=== PATIENT | male | born 1950 | race Caucasian/White ===

== ENCOUNTER 2018-01-17 17:55 | Inpatient (IN) | payer MEDICARE, OTHER ==
[~2018-01-17] VITALS: Ht 182.9 cm; Wt 63.3 kg
[2018-01-17 20:00] VITALS: BP 112/78
[2018-01-17] MEDS ORDERED: POLYETHYLENE GLYCOL 17 GM PACKET PO PRN (20:00)
[2018-01-17] MEDS ORDERED: HYDROcodone/APAP 5/325 TABLET PO PRN (20:00)
[2018-01-17] MEDS ORDERED: ONDANSETRON 2MG/ML, 2ML IVPush PRN (20:00)
[2018-01-17] MEDS ORDERED: DOCUSATE 100 MG CAPSULE PO PRN (20:00)
[2018-01-17] MEDS ORDERED: morphine SULFATE 10 MG/ML, 1ML IVPush PRN (20:00)
[2018-01-17] MEDS ORDERED: ASPI-496 PO (20:43)
[2018-01-17] MEDS ORDERED: DILT120C75 PO (20:44)
[2018-01-17] MEDS ORDERED: LOSA100T6 PO (20:46)
[2018-01-17] MEDS: SODIUM CHLORIDE 0.9% 1,000 ML IV SCH (21:39)
[2018-01-17] MEDS: SODIUM CHLORIDE FLUSH 10ML SYR IVF SCH (21:39)
[2018-01-17] MEDS: ENOXAPARIN 40 MG/0.4 ML SQ SCH (21:45)
[2018-01-17] MEDS: PYRIDOSTIGMINE 60 MG TABLET PO SCH (21:45)
[2018-01-18 04:00] VITALS: BP 94/54
[2018-01-18 04:36] LABS: BASOPHILS # (AUTO) 0.02 x10^3/uL (0-0.1); BASOPHILS % (AUTO) 0 % (0-1); EOSINOPHILS # (AUTO) 0.04 x10^3/uL (0-0.4); EOSINOPHILS % (AUTO) 1 % (1-7); LYMPHOCYTES # (AUTO) 1.01 x10^3/uL (1-3.4); LYMPHOCYTES % (AUTO) 24 % (22-44); MD NO; MEAN CORPUSCULAR HEMOGLOBIN 31.8 pg (27.5-34.5); MEAN CORPUSCULAR HGB CONC 32.6 g/dL (33.2-36.2); MEAN CORPUSCULAR VOLUME 97.7 fL (81-97); MEAN PLATELET VOLUME 7.6 fL (7.4-10.4); MONOCYTES # (AUTO) 0.45 x10^3/uL (0.2-0.8); MONOCYTES % (AUTO) 10 % (2-9); NEUTROPHILS # (AUTO) 2.78 x10^3/uL (1.8-6.8); NEUTROPHILS % (AUTO) 65 % (42-75); PLATELET COUNT 265 x10^3/uL (130-400); RED BLOOD COUNT 4.18 x10^6/uL (4.38-5.82)
[2018-01-18 04:41] LABS: ALBUMIN 3.1 g/dL (3.4-5.0); CALCIUM 8.8 mg/dL (8.5-10.1)
[2018-01-18 04:53] LABS: ALANINE AMINOTRANSFERASE 120 U/L (12-78); ALKALINE PHOSPHATASE 166 U/L (45-117); BILIRUBIN,TOTAL 0.5 mg/dL (0.2-1.0); TOTAL PROTEIN 5.9 g/dL (6.4-8.2)
[2018-01-18 05:11] LABS: ANION GAP 2 mmol/L (5-15); CHLORIDE 95 mmol/L (98-107)
[2018-01-18] MEDS: SODIUM CHLORIDE 0.9% 1,000 ML IV SCH ×2 (05:21→17:02)
[2018-01-18] MEDS ORDERED: SODIUM CHLORIDE 0.9%, 250ML IVBOLUS ONE (05:30)
[2018-01-18] MEDS: PYRIDOSTIGMINE 60 MG TABLET PO SCH (08:00)
[2018-01-18] MEDS: ENOXAPARIN 40 MG/0.4 ML SQ SCH (08:02)
[2018-01-18] MEDS: SODIUM CHLORIDE FLUSH 10ML SYR IVF SCH ×2 (09:00→19:57)
[2018-01-18] MEDS: SENNA/DOCUSATE TABLET PO SCH (09:00)
[2018-01-18] MEDS ORDERED: ARTIFICIAL TEARS 15 DROP/ML BOTTLE OP PRN (09:30)
[2018-01-19 04:00] VITALS: BP 148/100
[2018-01-19 04:31] LABS: BASOPHILS # (AUTO) 0.04 x10^3/uL (0-0.1); BASOPHILS % (AUTO) 1 % (0-1); EOSINOPHILS # (AUTO) 0.08 x10^3/uL (0-0.4); EOSINOPHILS % (AUTO) 2 % (1-7); LYMPHOCYTES # (AUTO) 1.15 x10^3/uL (1-3.4); LYMPHOCYTES % (AUTO) 34 % (22-44); MD NO; MEAN CORPUSCULAR HEMOGLOBIN 31.7 pg (27.5-34.5); MEAN CORPUSCULAR HGB CONC 32.5 g/dL (33.2-36.2); MEAN CORPUSCULAR VOLUME 97.4 fL (81-97); MEAN PLATELET VOLUME 7.8 fL (7.4-10.4); MONOCYTES # (AUTO) 0.39 x10^3/uL (0.2-0.8); MONOCYTES % (AUTO) 12 % (2-9); NEUTROPHILS # (AUTO) 1.71 x10^3/uL (1.8-6.8); NEUTROPHILS % (AUTO) 51 % (42-75); PLATELET COUNT 232 x10^3/uL (130-400); RED BLOOD COUNT 3.86 x10^6/uL (4.38-5.82)
[2018-01-19 04:39] LABS: ALBUMIN 2.9 g/dL (3.4-5.0); ANION GAP 0 mmol/L (5-15); CALCIUM 8.3 mg/dL (8.5-10.1); CHLORIDE 102 mmol/L (98-107)
[2018-01-19 05:07] LABS: ALANINE AMINOTRANSFERASE 111 U/L (12-78); ALKALINE PHOSPHATASE 149 U/L (45-117); BILIRUBIN,TOTAL 0.6 mg/dL (0.2-1.0); CREATININE 0.62 mg/dL (0.7-1.3); TOTAL PROTEIN 5.4 g/dL (6.4-8.2)
[2018-01-19] MEDS: SODIUM CHLORIDE 0.9% 1,000 ML IV SCH ×2 (05:15→18:22)
[2018-01-19] MEDS: SENNA/DOCUSATE TABLET PO SCH (08:29)
[2018-01-19] MEDS ORDERED: [UNRECOGNIZED DRUG - REMARK] XX PRN (14:00)
[2018-01-19] MEDS: SODIUM CHLORIDE FLUSH 10ML SYR IVF SCH ×2 (18:23→20:43)
[2018-01-19] MEDS: ENOXAPARIN 40 MG/0.4 ML SQ SCH (20:37)
[2018-01-19] MEDS: RILUZOLE 50 MG HOMEMEDPO SCH (20:43)
[2018-01-20] MEDS: SODIUM CHLORIDE 0.9% 1,000 ML IV SCH ×2 (03:48→15:24)
[2018-01-20 05:13] VITALS: BP 113/71
[2018-01-20 05:32] LABS: CHLORIDE 103 mmol/L (98-107)
[2018-01-20 05:37] LABS: BASOPHILS # (AUTO) 0.03 x10^3/uL (0-0.1); BASOPHILS % (AUTO) 1 % (0-1); EOSINOPHILS % (AUTO) 3 % (1-7); LYMPHOCYTES # (AUTO) 1.19 x10^3/uL (1-3.4); LYMPHOCYTES % (AUTO) 34 % (22-44); MD NO; MEAN CORPUSCULAR HGB CONC 32.9 g/dL (33.2-36.2); MEAN CORPUSCULAR VOLUME 97.3 fL (81-97); MEAN PLATELET VOLUME 8.3 fL (7.4-10.4); MONOCYTES # (AUTO) 0.34 x10^3/uL (0.2-0.8); MONOCYTES % (AUTO) 10 % (2-9); NEUTROPHILS # (AUTO) 1.86 x10^3/uL (1.8-6.8); NEUTROPHILS % (AUTO) 53 % (42-75); PLATELET COUNT 232 x10^3/uL (130-400); RED BLOOD COUNT 3.99 x10^6/uL (4.38-5.82); RED CELL DISTRIBUTION WIDTH 14.1 % (9.4-14.8)
[2018-01-20 05:37] LABS: ALANINE AMINOTRANSFERASE 96 U/L (12-78); ALBUMIN 3.1 g/dL (3.4-5.0); ALKALINE PHOSPHATASE 141 U/L (45-117); ANION GAP 4 mmol/L (5-15); BILIRUBIN,TOTAL 0.6 mg/dL (0.2-1.0); CALCIUM 8.8 mg/dL (8.5-10.1); CREATININE 0.64 mg/dL (0.7-1.3); TOTAL PROTEIN 5.7 g/dL (6.4-8.2)
[2018-01-20] MEDS ORDERED: CEFAZOLIN PMX 1GM/50ML 50 ML IV ONE (06:30)
[2018-01-20] MEDS: SENNA/DOCUSATE TABLET PO SCH (09:00)
[2018-01-20] MEDS ORDERED: FENTANYL PF 100 MCG/2ML ONE (10:44)
[2018-01-20] MEDS ORDERED: KETOROLAC 30 MG/1 ML ONE (10:45)
[2018-01-20] MEDS ORDERED: ACETAMINOPHEN 650 MG/20.3 ML UDC ONE (10:45)
[2018-01-20] MEDS ORDERED: KETOROLAC 30 MG/1 ML IV PRN (11:00)
[2018-01-20] MEDS ORDERED: ACETAMINOPHEN 325 MG TABLET PO PRN (11:00)
[2018-01-20] MEDS ORDERED: FENTANYL PF 100 MCG/2ML IV PRN (11:00)
[2018-01-20] MEDS: RILUZOLE 50 MG HOMEMEDPO SCH ×2 (11:20→20:42)
[2018-01-20] MEDS: SODIUM CHLORIDE FLUSH 10ML SYR IVF SCH ×2 (11:20→20:39)
[2018-01-20] MEDS: ACETAMINOPHEN 325 MG TABLET PO PRN (17:28)
[2018-01-20] MEDS: ENOXAPARIN 40 MG/0.4 ML SQ SCH (20:42)
[2018-01-21] MEDS: SODIUM CHLORIDE 0.9% 1,000 ML IV SCH (00:49)
[2018-01-21] MEDS: ACETAMINOPHEN 325 MG TABLET PO PRN ×3 (01:01→19:13)
[2018-01-21 04:00] VITALS: BP 113/64
[2018-01-21] MEDS: SENNA/DOCUSATE TABLET PO SCH (08:38)
[2018-01-21] MEDS: SODIUM CHLORIDE FLUSH 10ML SYR IVF SCH ×2 (08:40→20:35)
[2018-01-21] MEDS: RILUZOLE 50 MG HOMEMEDPO SCH ×2 (08:40→20:34)
[2018-01-21] MEDS: ENOXAPARIN 40 MG/0.4 ML SQ SCH (20:34)
[2018-01-22] MEDS: ACETAMINOPHEN 325 MG TABLET PO PRN ×2 (00:03→13:47)
[2018-01-22 04:00] VITALS: BP 128/72
[2018-01-22 04:30] LABS: ALANINE AMINOTRANSFERASE 112 U/L (12-78); ALBUMIN 2.8 g/dL (3.4-5.0); ANION GAP 3 mmol/L (5-15); CALCIUM 8.1 mg/dL (8.5-10.1); CHLORIDE 102 mmol/L (98-107); CREATININE 0.57 mg/dL (0.7-1.3)
[2018-01-22 04:33] LABS: ALKALINE PHOSPHATASE 165 U/L (45-117); BILIRUBIN,TOTAL 0.3 mg/dL (0.2-1.0); TOTAL PROTEIN 5.3 g/dL (6.4-8.2)
[2018-01-22] MEDS: SODIUM CHLORIDE FLUSH 10ML SYR IVF SCH (07:53)
[2018-01-22] MEDS: RILUZOLE 50 MG HOMEMEDPO SCH (07:53)
[2018-01-22] MEDS: SENNA/DOCUSATE TABLET PO SCH (07:53)
[2018-01-22] MEDS ORDERED: RILU50TA8 PO (14:46)
== END 2018-01-22 15:42 | disposition home health service (06) | DRG 56 ==
LOC: CCU 19:13
PROVIDERS: ADMIT Hospitalist; ATTEND Family Medicine
PROC: 5A09357 Assistance with Respiratory Ventilation, Less than 24 Consecutive Hours, Continuous Positive Airway Pressure (ICD-10-PCS; 2018-01-17)
PROC: 4A133B3 Monitoring of Arterial Pressure, Pulmonary, Percutaneous Approach (ICD-10-PCS; 2018-01-18)
PROC: 5A09357 Assistance with Respiratory Ventilation, Less than 24 Consecutive Hours, Continuous Positive Airway Pressure (ICD-10-PCS; 2018-01-18)
PROC: 05HN33Z Insertion of Infusion Device into Left Internal Jugular Vein, Percutaneous Approach (ICD-10-PCS; 2018-01-18)
PROC: B544ZZA Ultrasonography of Left Jugular Veins, Guidance (ICD-10-PCS; 2018-01-18)
PROC: 5A09357 Assistance with Respiratory Ventilation, Less than 24 Consecutive Hours, Continuous Positive Airway Pressure (ICD-10-PCS; 2018-01-19)
PROC: 5A09357 Assistance with Respiratory Ventilation, Less than 24 Consecutive Hours, Continuous Positive Airway Pressure (ICD-10-PCS; 2018-01-20)
PROC: 0DH63UZ Insertion of Feeding Device into Stomach, Percutaneous Approach (ICD-10-PCS; principal; 2018-01-20 10:00)
PROC: 5A09357 Assistance with Respiratory Ventilation, Less than 24 Consecutive Hours, Continuous Positive Airway Pressure (ICD-10-PCS; 2018-01-21)
PROC: 5A09357 Assistance with Respiratory Ventilation, Less than 24 Consecutive Hours, Continuous Positive Airway Pressure (ICD-10-PCS; 2018-01-22)
DX: G12.21 Amyotrophic lateral sclerosis (principal); J96.02 Acute respiratory failure with hypercapnia; E43 Unspecified severe protein-calorie malnutrition; E87.2 Acidosis; I95.9 Hypotension, unspecified; R13.10 Dysphagia, unspecified; Z68.1 Body mass index [BMI] 19.9 or less, adult; E78.5 Hyperlipidemia, unspecified; G47.33 Obstructive sleep apnea (adult) (pediatric); G89.29 Other chronic pain; M54.9 Dorsalgia, unspecified; M19.90 Unspecified osteoarthritis, unspecified site; I10 Essential (primary) hypertension; Z80.9 Family history of malignant neoplasm, unspecified; Z79.82 Long term (current) use of aspirin; Z91.018 Allergy to other foods
CPT/HCPCS: 36415; 36600; 80053; 82607; 82803; 83735; 84100; 84443; 85025; 87081; 94150; 94660; B4087; J0690; J1650; J1885; J3010; 92523-GN; J7030

== ENCOUNTER 2018-05-16 10:54 | Inpatient (IN) | payer MEDICARE, OTHER ==
[~2018-05-16] VITALS: Ht 182.9 cm; Wt 74.2 kg
[~2018-05-16 10:54] MED LIST: ASPI-496 PO; DILT120C75 PO; LOSA100T6 PO; RILU50TA8 PO
[2018-05-16 11:29] LABS: BASOPHILS # (AUTO) 0.02 x10^3/uL (0-0.1); BASOPHILS % (AUTO) 1 % (0-1); EOSINOPHILS # (AUTO) 0.06 x10^3/uL (0-0.4); EOSINOPHILS % (AUTO) 2 % (1-7); LYMPHOCYTES # (AUTO) 0.86 x10^3/uL (1-3.4); LYMPHOCYTES % (AUTO) 22 % (22-44); MD NO; MEAN CORPUSCULAR HEMOGLOBIN 31.2 pg (27.5-34.5); MEAN CORPUSCULAR HGB CONC 33.5 g/dL (33.2-36.2); MEAN CORPUSCULAR VOLUME 93.2 fL (81-97); MEAN PLATELET VOLUME 7.8 fL (7.4-10.4); MONOCYTES # (AUTO) 0.35 x10^3/uL (0.2-0.8); MONOCYTES % (AUTO) 9 % (2-9); NEUTROPHILS # (AUTO) 2.66 x10^3/uL (1.8-6.8); NEUTROPHILS % (AUTO) 67 % (42-75); PLATELET COUNT 206 x10^3/uL (130-400); RED BLOOD COUNT 4.33 x10^6/uL (4.38-5.82); RED CELL DISTRIBUTION WIDTH 13.1 % (9.4-14.8)
[2018-05-16] MEDS ORDERED: SODIUM CHLORIDE FLUSH 10ML SYR IVF ONE (11:30)
[2018-05-16] MEDS ORDERED: PLEASE ENTER HEIGHT AND WEIGHT MC SCH (11:30)
[2018-05-16 11:40] LABS: ALBUMIN 4.2 g/dL (3.4-5.0); ANION GAP 4 mmol/L (5-15); CALCIUM 9.8 mg/dL (8.5-10.1); CHLORIDE 101 mmol/L (98-107); CREATININE 1.17 mg/dL (0.7-1.3)
[2018-05-16 11:44] LABS: TROPONIN I < 0.015 ng/mL (0.000-0.045)
[2018-05-16 12:50] LABS: O2 FLOW 3 L/min
[2018-05-16] MEDS ORDERED: MORPHINE SULFATE 4 MG/ML, 1ML IVPush STA (15:05)
[2018-05-16] MEDS ORDERED: MORPHINE SULFATE 4 MG/ML, 1ML ONE (15:07)
[2018-05-16] MEDS ORDERED: ACETAMINOPHEN 325 MG TABLET PO PRN (15:30)
[2018-05-16] MEDS ORDERED: ONDANSETRON 2MG/ML, 2ML IVPush PRN (15:30)
[2018-05-16] MEDS: ENOXAPARIN 40 MG/0.4 ML SQ SCH (15:30)
[2018-05-16] MEDS ORDERED: TRAZODONE 50MG TABLET PO PRN (15:30)
[2018-05-16] MEDS ORDERED: ENOXAPARIN 40 MG/0.4 ML ONE (17:01)
[2018-05-16 17:42] LABS: FREE T4 (FREE THYROXINE) 1.19 ng/dL (0.76-1.46); THYROID STIMULATING HORMONE 2.21 mIU/L (0.358-3.740)
[2018-05-16] MEDS ORDERED: OLME20TA27 PO (19:29)
[2018-05-16] MEDS ORDERED: DILT240C80 PO (19:29)
[2018-05-16 19:32] VITALS: BP 132/75
[2018-05-16] MEDS: KETOROLAC 30 MG/1 ML IVPush PRN (19:48)
[2018-05-16 20:36] VITALS: BP 116/66
[2018-05-16] MEDS: RILUZOLE 50 MG PO SCH (20:58)
[2018-05-17] MEDS: KETOROLAC 30 MG/1 ML IVPush PRN ×2 (05:41→18:29)
[2018-05-17 07:18] VITALS: BP 101/64
[2018-05-17] MEDS: SODIUM CHLORIDE 0.9% 1,000 ML IV SCH ×2 (11:49→19:50)
[2018-05-17] MEDS: RILUZOLE 50 MG PO SCH ×2 (11:51→19:49)
[2018-05-17 15:25] VITALS: BP 102/66
[2018-05-17] MEDS: ENOXAPARIN 40 MG/0.4 ML SQ SCH (15:32)
[2018-05-17 19:43] VITALS: BP 133/80
[2018-05-17] MEDS: DILTIAZEM 240 MG CAP.ER.24H PO SCH (19:49)
[2018-05-17] MEDS: VALSARTAN 160 MG TABLET PO SCH (19:49)
[2018-05-17] MEDS: POLYETHYLENE GLYCOL 17 GM PACKET PO PRN (21:03)
[2018-05-18 01:57] VITALS: BP 91/56
[2018-05-18] MEDS: SODIUM CHLORIDE 0.9% 1,000 ML IV SCH ×2 (06:35→17:33)
[2018-05-18 06:53] VITALS: BP 101/61
[2018-05-18] MEDS: RILUZOLE 50 MG PO SCH ×2 (09:00→20:31)
[2018-05-18] MEDS: HYDROcodone/APAP 5/325 TABLET PO PRN ×2 (12:14→20:32)
[2018-05-18 14:23] VITALS: BP 107/67
[2018-05-18] MEDS: ENOXAPARIN 40 MG/0.4 ML SQ SCH (17:27)
[2018-05-18 19:56] VITALS: BP 103/60
[2018-05-18] MEDS: DILTIAZEM 240 MG CAP.ER.24H PO SCH (20:35)
[2018-05-18] MEDS: VALSARTAN 160 MG TABLET PO SCH (21:00)
[2018-05-18 21:48] VITALS: BP 100/65
[2018-05-19 02:12] VITALS: BP 91/57
[2018-05-19 02:13] VITALS: BP 88/54
[2018-05-19] MEDS: SODIUM CHLORIDE 0.9% 1,000 ML IV SCH ×2 (02:52→13:00)
[2018-05-19 06:56] VITALS: BP 118/67
[2018-05-19] MEDS: RILUZOLE 50 MG PO SCH ×2 (07:10→20:06)
[2018-05-19] MEDS: KETOROLAC 30 MG/1 ML IVPush PRN (07:10)
[2018-05-19 11:20] LABS: ANION GAP 6 mmol/L (5-15); CALCIUM 8.9 mg/dL (8.5-10.1); CHLORIDE 105 mmol/L (98-107)
[2018-05-19 11:21] LABS: CREATININE 0.56 mg/dL (0.7-1.3)
[2018-05-19] MEDS ORDERED: MAGNESIUM SULFATE PMX 2GM/50ML 50 ML IV ONE (12:00)
[2018-05-19 12:16] VITALS: BP 111/68
[2018-05-19] MEDS ORDERED: DIAZEPAM 2 MG TABLET PO PRN (12:30)
[2018-05-19] MEDS ORDERED: DIAZEPAM 5 MG TABLET ONE (12:53)
[2018-05-19] MEDS ORDERED: DIAZEPAM ELIXIR 1 MG/ML PO PRN ×2 (13:30)
[2018-05-19] MEDS: ENOXAPARIN 40 MG/0.4 ML SQ SCH (16:53)
[2018-05-19 19:15] VITALS: BP 116/71
[2018-05-19] MEDS: DILTIAZEM 240 MG CAP.ER.24H PO SCH (20:07)
[2018-05-19] MEDS: POLYETHYLENE GLYCOL 17 GM PACKET PO PRN (20:07)
[2018-05-19] MEDS: DIAZEPAM 2 MG TABLET PO PRN (20:08)
[2018-05-19] MEDS: VALSARTAN 160 MG TABLET PO SCH (21:00)
[2018-05-19 21:40] VITALS: BP 97/57
[2018-05-20] MEDS: SODIUM CHLORIDE 0.9% 1,000 ML IV SCH ×2 (01:05→10:55)
[2018-05-20 01:47] VITALS: BP 96/61
[2018-05-20 06:52] VITALS: BP 106/64
[2018-05-20] MEDS: HYDROcodone/APAP 5/325 TABLET PO PRN (07:13)
[2018-05-20] MEDS: RILUZOLE 50 MG PO SCH (08:29)
[2018-05-20] MEDS: DIAZEPAM 2 MG TABLET PO PRN (08:29)
[2018-05-20] MEDS ORDERED: PROCHLORPERAZINE 5 MG/ML, 2ML IVPush PRN (10:30)
[2018-05-20] MEDS ORDERED: SCOPOLAMINE PATCH, 1.5MG PATCH.TD72 TD PRN (10:30)
[2018-05-20] MEDS ORDERED: HALOPERIDOL 5 MG/ML IVPush PRN (10:30)
[2018-05-20] MEDS ORDERED: MORPHINE SULFATE 4 MG/ML, 1ML IVPush PRN (10:30)
[2018-05-20] MEDS ORDERED: ATROPINE OPHTH SOLN 1%, 5ML BC PRN (10:30)
[2018-05-20] MEDS ORDERED: LORazepam 0.5MG TABLET ONE (10:51)
[2018-05-20] MEDS: LORazepam INTENSOL 2 MG/ML SL PRN ×2 (10:56→16:03)
[2018-05-21] MEDS: LORazepam INTENSOL 2 MG/ML SL PRN (03:15)
[2018-05-21] MEDS ORDERED: ATROPINE OPHTH SOLN 1%, 2ML BC PRN (05:30)
== END 2018-05-22 10:26 | disposition expired | DRG 56 ==
LOC: ED 12:31 → EDIP 14:34 → 5SO 18:20 → 3NW 05-18 14:17
PROVIDERS: ADMIT Family Medicine; ATTEND Family Medicine
PROC: 5A09457 Assistance with Respiratory Ventilation, 24-96 Consecutive Hours, Continuous Positive Airway Pressure (ICD-10-PCS; principal; 2018-05-16)
DX: G12.21 Amyotrophic lateral sclerosis (principal); J96.22 Acute and chronic respiratory failure with hypercapnia; N17.0 Acute kidney failure with tubular necrosis; E87.2 Acidosis; E78.5 Hyperlipidemia, unspecified; F41.9 Anxiety disorder, unspecified; G89.29 Other chronic pain; I10 Essential (primary) hypertension; Z51.5 Encounter for palliative care; Z66 Do not resuscitate; Z91.018 Allergy to other foods
CPT/HCPCS: 36415; 36600; 71045; 80048; 82040; 82803; 83735; 83880; 84439; 84443; 84481; 84484; 85025; 85379; 93005; 96372; 96374; J1650; J1885; J2270; J3475; J7030